=== PATIENT | male | born 1995 | race Hispanic/Latino ===

== ENCOUNTER 2021-10-21 14:22 | Emergency (ER) | payer BC ==
[~2021-10-21] VITALS: Ht 157.5 cm; Wt 68.9 kg
[2021-10-21] MEDS ORDERED: DOCU-116 PO (15:26)
[2021-10-21] MEDS ORDERED: [UNRECOGNIZED DRUG - CODE] TP (15:26)
[2021-10-21] MEDS ORDERED: HYDR25SU11 RC (15:26)
[2021-10-21 15:30] VITALS: BP 118/66
== END 2021-10-21 15:37 | disposition home or self-care (01) ==
LOC: EDH 14:26
DX: K64.4 Residual hemorrhoidal skin tags (principal); Z88.0 Allergy status to penicillin; Z88.6 Allergy status to analgesic agent